=== PATIENT | female | born 1955 | race Caucasian/White ===

== ENCOUNTER → 2020-06-23 08:33 | Outpatient (CLI) | payer OTHER, SELFPAY ==
[2020-06-25 09:14] LABS: COVID19 Sendout Not Detected (Not Detect)
== END ==
PROVIDERS: PCP Internal Medicine; Visit Provider Nurse Practitioner
DX: Z11.59 Encounter for screening for other viral diseases (principal)
CPT/HCPCS: 87635

== ENCOUNTER 2022-12-22 19:26 | Emergency (ER) | payer MEDICARE, MEDICAID, SELFPAY ==
[2022-12-22 19:41] VITALS: BP 119/69; PULSE 71; RESP 16; TEMP 36.6; O2SAT 99; BMI 22.8
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
[2022-12-22] MEDS: BACITRACIN OINT 0.9 GM PCKT 1 APPLIC TOP (22:42)
[2022-12-22 22:44] VITALS: BP 137/81; PULSE 79; RESP 16; O2SAT 97
== END 2022-12-22 22:44 | disposition home or self-care (01) ==
PROVIDERS: Emergency Provider Emergency Medicine; PCP Internal Medicine
DX: S52.502A Unspecified fracture of the lower end of left radius, initial encounter for closed fracture (principal); S52.612A Displaced fracture of left ulna styloid process, initial encounter for closed fracture; S81.012A Laceration without foreign body, left knee, initial encounter; V89.2XXA Person injured in unspecified motor-vehicle accident, traffic, initial encounter
CPT/HCPCS: 12002; 73110; 73562; 99283